=== PATIENT | female | born 1980 | race Two or more races ===

== ENCOUNTER 2021-09-26 05:07 | Inpatient (IN) | payer BC, SELFPAY ==
[2021-09-26] VITALS (21 sets, daily range): BP systolic 50–122; BP diastolic 27–85; PULSE 66–106; RESP 16–18; TEMP 36.6–37.4; O2SAT 98–100; BMI 26.6
[2021-09-26 06:01] LABS: Glucose Point of Care 120 mg/dl (65-105)
[2021-09-26 06:08] LABS: Basophils Absolute Auto 0.1 K/mm3 (0.0-0.1); Basophils Percent Auto 0.6 % (0.2-1.2); Eosinophils Absolute Auto 0.1 K/mm3 (0-0.3); Eosinophils Percent Auto 0.7 % (0-4.4); Hematocrit 38.6 % (37.0-47.0); Immature Granulocyte Absolute 0.44 K/mm3 (0.00-0.031); Immature Granulocyte Percent A 4.1 % (0-0.5); Lymphocytes Absolute Auto 2.37 K/mm3 (0.9-3.2); Lymphocytes Percent Auto 21.8 % (18.3-44.2); Mean Corpuscular HGB Conc 33.7 g/dl (32-36); Mean Corpuscular Hemoglobin 30.5 pg (26-34); Mean Corpuscular Volume 90.6 fl (80-100); Mean Platelet Volume 9.3 fl (7.4-10.4); Monocytes Absolute Auto 0.6 K/mm3 (0.1-0.6); Monocytes Percent Auto 5.6 % (2.6-8.5); Neutrophils Absolute Auto 7.3 K/mm3 (1.3-6.7); Neutrophils Percent Auto 67.2 % (45.5-73.1); Platelet Count Result 303 k/mm3 (150-375); Red Blood Count 4.26 M/mm3 (4.2-5.4); Red Cell Distribution Width 13.7 % (11.5-14.5); White Blood Count 10.9 K/mm3 (4.5-10.0)
[2021-09-26] MEDS: OXYTOCIN 30 UNITS/NS 500 ML 30 UNITS/500 ML BAG IV CONT (06:12)
[2021-09-26] MEDS: LACTATED RINGERS 1,000 ML 125 ML IV CONT (06:13)
--- NOTE | 2021-09-26 06:32 | LDADM ---
This patient, Elyse Pete, was admitted to Labor/Delivery/Recovery 107 on 09/26/21 at 05:07. Plans for labor, pain management and were discussed with patient. Patient/family oriented to hospital policies and general routines including ID bracelet, bed and alarms, visiting hours, pain management, procedures, bathroom and other care routines, personal items, smoking policy, room service/diet and guest tray routines, security routines, and visiting hours. Patient/Family are encouraged to report perceived risks to care and to ask questions if they do not understand what they are told or what they should do. See OBIX for further documentation.
--- NOTE | 2021-09-26 06:42 | WPDANESEPP ---
Anes - Eval Pre Procedure Procedure: Labor epidural Date/Time: 09/26/21 06:42 Surgeon: Natalya Preop Diagnosis: Abd pain with contractions Pre Op Diagnosis: IOL Patient Data Age: 41 Gender: F Height: Weight: Last Vital Signs Pulse 96 09/26/21 06:32 BP 109/72 09/26/21 06:32 Allergies Allergy/AdvReac Type Severity Reaction Status Date / Time No Known Allergies Verified 06/19/21 15:01 Home Medications Medication Instructions Recorded Confirmed Type PNV cmb#95-ferrous fumarate-FA 1 tablet PO DAILY 09/07/21 09/26/21 History [] insulin NPH isoph U-100 human 10 unit SUBCUT HS 09/07/21 09/26/21 History [Humulin N NPH Insulin KwikPen] ergocalciferol (vitamin D2) 1 tablet PO DAILY 09/26/21 09/26/21 History Laboratory Tests 09/26/21 09/26/21 09/26/21 05:55 05:59 05:59 WBC 10.9 K/mm3 H K/mm3 (4.5-10.0) RBC 4.26 M/mm3 M/mm3 (4.2-5.4) Hgb 13.0 g/dL g/dL (12.0-15.0) Hct 38.6 % % (37.0-47.0) MCV 90.6 fl fl (80-100) MCH 30.5 pg pg (26-34) MCHC 33.7 g/dl g/dl (32-36) RDW 13.7 % % (11.5-14.5) Plt Count 303 k/mm3 k/mm3 (150-375) MPV 9.3 fl fl (7.4-10.4) Immature Gran % (Auto) 4.1 % H % (0-0.5) Neut % (Auto) 67.2 % % (45.5-73.1) Lymph % (Auto) 21.8 % % (18.3-44.2) R[place] % (Auto) 5.6 % % (2.6-8.5) Eos % (Auto) 0.7 % % (0-4.4) Baso % (Auto) 0.6 % % (0.2-1.2) Lymph # (Auto) 2.37 K/mm3 K/mm3 (0.9-3.2) Rains # (Auto) 0.6 K/mm3 K/mm3 (0.1-0.6) Eos # (Auto) 0.1 K/mm3 K/mm3 (0-0.3) Baso # (Auto) 0.1 K/mm3 K/mm3 (0.0-0.1) Abs Immat Gran (auto) 0.44 K/mm3 H K/mm3 (0.00-0.031) Absolute Neuts (auto) 7.3 K/mm3 H K/mm3 (1.3-6.7) Absolute Nucleated RBC 0.0 K/mm3 K/mm3 (0.0-0.012) Nucleated RBC % 0.0 % % (0.0-0.2) POC Capillary Glucose 120 mg/dl H mg/dl (65-105) RPR Pending Patient hx anesthesia problems: none Family hx anesthesia problems: none Results Review: All pre-operative results and documents have been reviewed as part of the pre-operative evaluation. [facility] Past Medical History Medical History Gestational diabetes mellitus (GDM) affecting and not yet delivered Family History Family History Father Heart disease Hypertension Father Heart disease Social History Social History Smoking status: Never smoker Second hand tobacco smoke exposure: No Alcohol intake: never Substance use: never Substance use type: does not use Gender identity (if verbalized by the patient): Female Sexual Orientation (if Verbalized by the Patient): Straight or Heterosexual Spiritual care concerns: No Exam Day of Procedure 09/26/21 06:42 Patient weight: overweight Lungs: clear to auscultation Airway: Mallampati scale class II Neurological: alert and oriented
--- NOTE | 2021-09-26 07:05 | WPDOBADMIT ---
Obstetrics - Admit Note Admission Note: record reviewed. No pertinent additions to the history and/or any subsequent changes in the physical findings that are not consistent with the expected course of the were found. Additions to the history and/or subsequent changes in the physical findings follow. Here for MIL for GDMA2. Cervix 3-4/70/-2 posterior. AROM with clear fluid. FHTs reactive.
[2021-09-26 08:00] LABS: Rapid Plasma Reagin Non-Reactive (NonReactive)
[2021-09-26 10:12] LABS: Glucose Point of Care 112 mg/dl (65-105)
--- NOTE | 2021-09-26 11:50 | PM.OBPRVD ---
OB - Delivery Note Procedure Delivery date: 09/26/21 Procedure: Events: Gestational Diabetes (Insulin requiring) Induction method: AROM and Per Pitocin Protocol Delivery monitor: External FHT and External Uterine Route of delivery: Laceration Description: Perineal - 2nd Degree Delivery repair: vicryl (3-0) Specimen: No Quantitative Blood Loss (ml): 250 Anesthesia type: Local Disposition: Floor Grassflat Baby Date of : 09/26/21 Weeks of gestation at delivery: 39 Infant gender: Male Weight (pounds): 7 Weight (ounces): 2 position: Right Occiput Anterior Placenta delivery description: Spontaneous Cord Vessel Description: Nuchal Cord (delivered through) and Delayed Cord Clamping score one minute: 8 score five minutes: 9
--- NOTE | 2021-09-26 11:51 | PM.OBDSVD ---
DS: Admitting Diagnosis Discharge Date 09/27/21 Admitting Diagnosis IUP 39 GDMA2 DS: Discharge Diagnosis Discharge Diagnosis (1) (normal spontaneous vaginal delivery): Code(s): O80 - Encounter for full-term uncomplicated delivery Status: Acute OB - DS: Summary OB Procedures : NST and Ultrasound OB Procedures Intrapartum: Spontaneous Vag Delivery OB Procedures: : None Peripartum Data Infant Delivery Method: Natural Vaginal Laceration Description: Perineal - 2nd Degree complications: none Status at Discharge Functional status at discharge: independent ambulation Overall status at discharge: patient is progressing back to baseline Time Spent with Patient Time attestation: Total time spent providing and/or coordinating discharge services: DS: Data Data Completed and Pending Labs on day of discharge: Labs from last 24 hours 09/26/21 09/26/21 09/26/21 10:09 05:59 05:59 WBC RBC Hgb Hct MCV MCH MCHC RDW Plt Count MPV Immature Gran % (Auto) Neut % (Auto) Lymph % (Auto) [place] % (Auto) Eos % (Auto) Baso % (Auto) Lymph # (Auto) [place] # (Auto) Eos # (Auto) Baso # (Auto) Abs Immat Gran (auto) Absolute Neuts (auto) Absolute Nucleated RBC Nucleated RBC % POC Capillary Glucose 112 H RPR Non-reactive Blood Type B Positive Antibody Screen Negative 09/26/21 09/26/21 05:59 05:55 WBC 10.9 H RBC 4.26 Hgb 13.0 Hct 38.6 MCV 90.6 MCH 30.5 MCHC 33.7 RDW 13.7 Plt Count 303 MPV 9.3 Immature Gran % (Auto) 4.1 H Neut % (Auto) 67.2 Lymph % (Auto) 21.8 [place] % (Auto) 5.6 Eos % (Auto) 0.7 Baso % (Auto) 0.6 Lymph # (Auto) 2.37 [place] # (Auto) 0.6 Eos # (Auto) 0.1 Baso # (Auto) 0.1 Abs Immat Gran (auto) 0.44 H Absolute Neuts (auto) 7.3 H Absolute Nucleated RBC 0.0 Nucleated RBC % 0.0 POC Capillary Glucose 120 H RPR Blood Type Antibody Screen Discharge Plan Discharge Attending physician on discharge: Mae Hoang Discharging Clinician: Mae Hoang Anticipated Discharge Date/Time: 09/27/21 11:52 Patient Disposition: Home, Self-Care Activity: may shower and pelvic rest Diet: regular Patient Instructions: Antibiotic Form Stand Alone Forms: General Discharge Information Follow-up/Referrals: Mae Hoang MD [Physician] - 6 Weeks Discharge Medications: Continued PNV cmb#95-ferrous fumarate-FA [] 28 mg iron- 800 mcg Tablet 1 tablet PO DAILY RF: 0 ergocalciferol (vitamin D2) 1,000 unit Tablet 1 tablet PO DAILY RF: 0 Discontinued Humulin N NPH Insulin KwikPen 100 unit/mL (3 mL) Insulin Pen 10 unit SUBCUT HS RF: 0 Date of admission: 09/26/21 05:07 Primary Care Provider: Willem Estrella Admitting Provider: Mae Hoang Attending physician on admission: Mae Hoang Condition: Stable
[2021-09-26] MEDS: METHYLERGONOVINE MALEATE 0.2 MG/ML VIAL IM (11:59)
[2021-09-26] MEDS: OXYTOCIN 30 UNITS/NS 500 ML 30 UNITS/500 ML BAG 125 UNITS IV CONT (12:10)
[2021-09-26] MEDS: WITCH HAZEL 40 PADS 1 PAD TOPICAL (14:03)
--- NOTE | 2021-09-26 14:30 | PC.NURSE ---
Patient transferred to post room #291 via 1430. Support person present. Oriented to unit, room, information board, rooming in, admission packet and security measures. Patient verbalizes understanding.
[2021-09-27 03:45] VITALS: BP 102/60; PULSE 67; RESP 16; TEMP 36.8; O2SAT 97
[2021-09-27 05:09] LABS: Hematocrit 35.1 % (37.0-47.0); Hemoglobin 11.6 g/dL (12.0-15.0)
--- NOTE | 2021-09-27 07:43 | PM.OBPNVD ---
OB - PN: Subj Subjective Date/time seen: 09/27/21 07:43 Patient comments: no complaints baby status: doing well OB - PN: Obj Data Labs CBC & Chem 7: 09/27/21 03:49 Labs: Laboratory Results - last 24 hr 09/26/21 09/26/21 09/27/21 05:59 10:09 03:49 Hgb 11.6 L Hct 35.1 L POC Capillary Glucose 112 H RPR Non-reactive OB - PN A/P Plan day: 1 Plan: routine care, discharge home, follow up 6 weeks and other (Plans BTL at 6 wk pp) Time Spent With Patient Time: Total time spent is greater than 50% in coordination of care (as documented) at patient's floor/unit and/or counseling patient: Exam : Bimanual exam- vagina & uterus: other (Uterus firm, nt @U)
[2021-09-27] MEDS: MULTIVIT/MIN/PREN/FOL AC/IRON TABLET 1 TAB PO (08:18)
[2021-09-27 08:20] VITALS: BP 105/68; PULSE 69; RESP 16; TEMP 36.7; O2SAT 99
[2021-09-27] MEDS: MEASLES,MUMPS,RUBELLA VACCINE 0.5 ML VIAL (09:26)
--- NOTE | 2021-09-27 11:48 | PC.NURSE ---
[id number] Mother led the conversation with her experience and plan to feed her so far and her ability to independently latch optimally without discomfort. Reminded parents to use good handwashing technique to prevent infection. Mother is feeding appropriately for growth of and understands stimulating to eat if needed. Infant has had appropriate feedings in the last 24 hours meets the outcomes for weight, output and jaundice at this time. Mother states she is confident to continue effectively her infant at home or when to call for assistance and denies any additional assistance or education at this time. Reinforced understanding of milk production, transition of milk, signs of adequate intake, prevention/relief of engorgement, responsive after visualizing feeding cues, the different methods of stimulating infant to breastfeed 2-3 hours after the start of the last feeding, community resources, and when to call a provider using the resource of the mom and baby guide/[facility] website. Mother voiced understanding of the education shared. Reported to the primary RN.
--- NOTE | 2021-09-27 13:27 | PC.NURSE ---
Patient viewed the discharge video Mother & Baby Care, The First Two Weeks . Patient was given the opportunity and encouraged to ask questions. Patient verbalized understanding of information shared and has been given the mother/baby guide for home reference.
[2021-09-27] MEDS: IBUPROFEN 600 MG TABLET PO (14:06)
[2021-09-28 08:25] VITALS: BP 109/66; PULSE 74; RESP 20; TEMP 36.7; O2SAT 100
== END 2021-09-27 15:05 | disposition home or self-care (01) | DRG 807 ==
LOC: ANHLDR 11:53 → ANHOB2 14:41
PROVIDERS: Admitting Provider Obstetrics & Gynecology Gynecology; PCP Family Medicine; Visit Provider Obstetrics & Gynecology Gynecology
DX: O24.424 Gestational diabetes mellitus in childbirth, insulin controlled (principal); Z37.0 Single live birth; Z3A.39 39 weeks gestation of pregnancy; O70.1 Second degree perineal laceration during delivery; O69.81X0 Labor and delivery complicated by cord around neck, without compression, not applicable or unspecified
CPT/HCPCS: 36415; 82948; 85014; 85018; 85025; 86592; 86850; 86900; 86901; 90710; A9270; J2210; J2590; J7120

== ENCOUNTER 2021-12-18 00:57 | Day surgery (SDC) | payer BC, SELFPAY ==
[2021-12-13 11:36] VITALS: BMI 24.5
--- NOTE | 2021-12-13 11:56 | PC.NURSE ---
Report to the Outpatient Waiting Room, entrance under the green pavilion located off [facility], at 0700 on 12-18-21. OR Time: 0900. - You and your visitor will be asked a series of questions to screen for COVID 19 for your protection. - Only one visitor is allowed at this time. - The patient visitor is requested to leave or wait in car when not with patient. - A mask is required within the hospital. Patients may have clear liquids (water, carbonated beverages, clear teas, apple juice) until 3 hours prior to surgery with a maximum of 20 ounces. 0600 - No food from midnight until time of surgery - Infants may have breast milk until 4 hours before surgery, infant formula 6 hours prior to surgery. - Children will be allowed to drink immediately following surgery. If applicable, please bring a bottle or sippy cup to assist with drinking. Juice, water, soda, and popsicles are readily available. For infants on formula, please bring formula the day of surgery. Pacifiers are allowed. Take the following medications with a SIP of water the morning of surgery: None Medications to discontinue per physician: vitamins and supplements Date to take last dose: 12-15-21 Please no make-up, nail cuban, hairspray, perfume, deodorant, or body powder the day of surgery. No jewelry (including any body piercings) or valuables the day of surgery, leave them at home. Please take a shower or bath the night before, or the morning of, surgery with an antibacterial soap. Wear comfortable, loose fitting clothing. Children are encouraged to wear pajamas. - Jewelry must be removed prior to entering the operating room. Rings and piercings that are not removed may be cut off. - The hospital will not accept responsibility for valuables. - Please leave all valuables, including medications, at home the day of surgery. If you are going home after surgery, a licensed retail delivery driver must drive you home. - NO public transportation without another adult. - We recommend that an adult stay with you for 24 hours following discharge. - We also recommend that you do not drive, make important decision, drink alcoholic beverages, or take any drugs that were not prescribed by your health care provider for at least 24 hours after your discharge time. For Pediatric surgeries, we recommend two adults accompany the child home (only one inside the building at this time). Follow any additional instructions given to you from your surgeon. If you or anyone in your household have experienced Covid symptoms in the past week, please notify your surgeon or the nurse liaison at the phone number below for possible testing. Telephone instructions given to Elyse Pete and asked if any additional questions and then verbalized understanding. Patient advised to call surgeon office or pre surgery nurse liaison [phone] if any additional questions.
[2021-12-18] VITALS (11 sets, daily range): BP systolic 119–158; BP diastolic 80–97; PULSE 49–88; RESP 12–16; TEMP 36.6–36.7; O2SAT 96–100
--- NOTE | 2021-12-18 07:28 | WPDHPUPDATE1 ---
History and Physical Update Update Date/Time: 12/18/21 07:28 History and Physical has been reviewed, including an updated exam of the patient. There are NO changes in the patient's condition. Risks, benefits, and alternatives have been discussed and questions answered. Patient agrees to proceed with procedure.
--- NOTE | 2021-12-18 07:29 | PM.HPGS ---
History of Present Illness History of Present Illness Consent: Risks, benefits, and alternatives have been discussed and questions answered. Patient agrees to proceed with procedure. Chief complaint: Sterilization Narrative: Elyse Pete is a 41 year old female requesting permanent sterilization. Plan to proceed with laparoscopic bilateral tubal ligation with Falope rings. Risks of infection, bleeding, injury to internal organs, and tubal failure with increased ectopic risk were reviewed. The permanent and irreversible nature of tubal sterilization was reviewed. Patient voices understanding and agrees to proceed. Review of Systems Review of Systems: not repeated day of surgery; patient states no changes in status [facility] Past Medical History Medical History (Updated 12/18/21 @ 07:31 by Mae Hoang MD) (normal spontaneous vaginal delivery) X3 Family History Family History Father Heart disease Hypertension Father Heart disease Social History Social History Smoking status: Never smoker Second hand tobacco smoke exposure: No Alcohol intake: current Alcohol use details: occasionally Substance use: never Substance use type: does not use Living arrangements: alone Gender identity (if verbalized by the patient): Female Sexual Orientation (if Verbalized by the Patient): Straight or Heterosexual Spiritual care concerns: No Meds Home Medications and Allergies Home Medications Medication Instructions Recorded Confirmed Type vit no.95-ferrous 1 tablet PO DAILY 09/07/21 12/13/21 History fumarate 28 mg-folic acid 800 mcg tablet () ergocalciferol (vitamin D2) 1,000 1 tablet PO DAILY 09/26/21 12/13/21 History unit tablet Allergies Allergy/AdvReac Type Severity Reaction Status Date / Time No Known Allergies Verified 12/13/21 11:32 Exam Const: General: healthy appearing and alert Orientation/consciousness: patient oriented x3 GI: GI Palp: Yes Soft to palpation, No Tenderness to palpation present (GI) and No Palpable mass present : External Female Exam: normal external appearance Speculum Exam - Vagina: normal appearance of the vagina and normal vaginal discharge Speculum Exam - Cervix: normal appearance of the cervix Bimanual exam- vagina & uterus: uterine size normal and consistency normal Bimanual Exam- Adnexa, other: normal adnexae and No adnexal tenderness Neuro: General: patient oriented x3 Assessment and Plan Assessment and plan (1) Encounter for sterilization: Code(s): Z30.2 - Encounter for sterilization Status: Acute Assessment and Plan: Plan to proceed with laparoscopic bilateral tubal ligation with Falope rings
[2021-12-18] MEDS: LACTATED RINGERS 1,000 ML 30 ML IV CONT ×2 (07:48→10:00)
[2021-12-18] MEDS: ACETAMINOPHEN 500 MG TABLET 1000 MG PO (07:48)
[2021-12-18] MEDS: KETOROLAC 15 MG/ML VIAL (*BKC) IV PUSH (07:49)
--- NOTE | 2021-12-18 07:57 | WPDANESEPPF ---
Anes - Initial Pre Proc Eval Procedure: Operation Date: 12/18/21 09:00 Proposed Procedures p Laparoscopic Bilateral Tubal Ligation with Fallopian Rings - Mae Hoang MD Date/Time: 12/18/21 07:57 Surgeon: Mae Hoang MD Pre Op Diagnosis: Sterilization Patient Data Age: 41 Gender: F Height: 1.55 m Weight: 57.45 kg Last Vital Signs Temp 36.6 C 12/18/21 07:33 Pulse 88 12/18/21 07:33 Resp 16 12/18/21 07:33 BP 119/84 12/18/21 07:33 Pulse Ox 99 12/18/21 07:33 O2 Del Method Room Air 12/18/21 07:33 Allergies Allergy/AdvReac Type Severity Reaction Status Date / Time No Known Allergies Verified 12/18/21 07:33 Home Medications Medication Instructions Recorded Confirmed Type vit no.95-ferrous 1 tablet PO DAILY 09/07/21 12/18/21 History fumarate 28 mg-folic acid 800 mcg tablet () ergocalciferol (vitamin D2) 1,000 1 tablet PO DAILY 09/26/21 12/18/21 History unit tablet Patient hx anesthesia problems: none Family hx anesthesia problems: none Results Review: All pre-operative results and documents have been reviewed as part of the pre-operative evaluation. [facility] Past Medical History Medical History (normal spontaneous vaginal delivery) X3 Family History Family History Father Heart disease Hypertension Father Heart disease Social History Social History Smoking status: Never smoker Second hand tobacco smoke exposure: No Alcohol intake: current Alcohol use details: occasionally Substance use: never Substance use type: does not use Living arrangements: alone Gender identity (if verbalized by the patient): Female Sexual Orientation (if Verbalized by the Patient): Straight or Heterosexual Spiritual care concerns: No Anes - Eval Final PreProcedure Day of Procedure 12/18/21 07:57 Patient weight: normal Heart: regular rate and rhythm Lungs: clear to auscultation Airway: Mallampati scale class 1 Neurological: alert and oriented Last oral intake: >/= 8 hours ASA classification: I Emergent: no Anesthetic plan: proceed Anesthesia type and monitoring: general ETT and standard monitoring Results Review: All pre-operative results and documents have been reviewed as part of the pre-operative evaluation. Informed Consent: The patient's anesthetic plan and its attendant risks and benefits were discussed with the patient/family/POA. Questions were solicited and answers provided to the satisfaction of the patient/family/POA.
--- NOTE | 2021-12-18 09:24 | P.OP_ITS ---
Procedure Note - Detailed Date of Procedure 12/18/21 Pre-op Diagnosis Sterilization Post-op Diagnosis Same Procedure Performed Laparoscopic bilateral tubal ligation with Falope ring Surgeon Mae Hoang MD Anesthesia General Findings Uterus sounds to 8cm. Normal-appearing tubes, ovaries, and uterus. Description of Procedure The patient was taken to the operating room and placed under anesthesia in the dorsal lithotomy position. She was prepped and draped in usual sterile fashion. Penelope speculum was placed in the vagina and the cervix is grasped on the anterior lip with a tenaculum. The uterus is sounded to 8cm. The SUE manipulator was placed and other instruments are removed. Bladder was drained of 300cc of clear yellow urine. Attention is then turned to the abdomen where a horizontal skin incision was made at the base of the umbilicus. The abdomen is tented and the Veress needle placed. Opening patient pressure is 6mmHg. Pneumoperitoneum was obtained to a patient pressure of 15 mmHg. The Veress needle was removed and the 5mm Optiview trocar placed. Intra-abdominal placement was confirmed with the laparoscope. The patient is placed in Trendelenburg. The 8mm skin incision was made 2cm above the symphysis pubis in the midline. The 8mm trocar is placed under direct visualization. The blunt probe is used to bring the tubes into the surgical field. The ring applicator is used to grasp the left tube. A good loop of tube was brought into the applicator and a ring was applied. Upon switching to the 2nd setting on the ring applicator the ring ejected. This was grasped with a grasper and removed. A new set of rings was placed and the right tube was grasped with the ring applicator and the ring was applied. Picture documentation was taken. All instruments are removed and the pneumoperitoneum is reduced. Skin incisions were closed using 4-0 nylon in an interrupted fashion. Vaginal instruments are removed. Patient is awakened from anesthesia and taken to recovery in stable condition. Sponge, needle, and instrument counts are correct per the OR staff. Estimated Blood Loss 5 Drains No Packing No Pathology None sent Complications No immediate complications Condition Stable Disposition PACU
[2021-12-18] MEDS: fentaNYL CITRATE INJ (*CRX) 100 MCG/2 ML VIAL 25 MCG IV PUSH ×7 (09:52→11:53)
[2021-12-18] MEDS: oxyCODONE HCL (*CRX) 5 MG TAB IR PO (11:08)
== END 2021-12-18 12:30 | disposition home or self-care (01) ==
PROVIDERS: PCP Family Medicine; Visit Provider Obstetrics & Gynecology Gynecology
PROC: (CPT 58671; principal; 2021-12-18 09:00)
DX: Z30.2 Encounter for sterilization (principal)
CPT/HCPCS: 58671; A4264; A9270; J0330; J1100; J1170; J1885; J2250; J2405; J2704; J3010; J7120

== ENCOUNTER 2024-06-08 10:18 | Emergency (ER) | payer BC, SELFPAY ==
--- NOTE | ~2024-06-08 | XR_ITS ---
EXAMINATION: XR chest 2V DATE: 06/08/2024 12:44 INDICATION: Shortness of breath. TECHNIQUE: Frontal and lateral views of the chest were obtained. COMPARISON: None. FINDINGS: There is no pneumonia, pleural effusion, or pneumothorax. The heart size is normal. IMPRESSION: 1. No acute cardiopulmonary disease. Reviewed, dictated and finalized at location A. [employer]
[2024-06-08 10:24] VITALS: BP 150/90; PULSE 104; RESP 18; TEMP 36.6; O2SAT 96
[2024-06-08 12:17] VITALS: BP 132/109; PULSE 100; RESP 18; TEMP 36.8; O2SAT 98
[2024-06-08 12:20] VITALS: O2SAT 98
[2024-06-08 13:08] VITALS: PULSE 101; RESP 20; O2SAT 98
[2024-06-08] MEDS: IPRATROPIUM 0.5 MG/ALBUTEROL SULFATE 2.5 MG AMPUL.NEB 3 ML INHALATION (13:08)
[2024-06-08 13:14] VITALS: PULSE 100; RESP 20
[2024-06-08 13:38] LABS: Influenza A QL RT-PCR Negative (Negative); Influenza B QL RT-PCR Negative (Negative); RSV RNA, RT-PCR Negative (Negative); SARS-CoV-2 RNA PCR Negative (Negative)
--- NOTE | 2024-06-08 14:09 | ED.GENADULT ---
HPI - General Adult General Chief complaint: Upper Respiratory Infection Stated complaint: Trouble breathing, cough Time Seen by Provider: 06/08/24 12:27 History of Present Illness HPI narrative: Patient is a 43-year-old female who presents ER with shortness of breath. Ongoing over last few days. No fevers or chills or sweats. Associated with cough and sore throat. She can hear herself wheezing. Reports asthma as a child. No chest pain. Dyspnea is worse with exertion. She does have a 2-year-old that also has viral illness. Related Data Home Medications ?Medication ?Instructions ?Recorded ?Confirmed ?Last Taken ?Type vit no.95-ferrous 1 tablet PO DAILY 09/07/21 09/20/22 09/25/21 20:00 History fumarate 28 mg-folic acid 800 mcg tablet () ergocalciferol (vitamin D2) 1,000 1 tablet PO DAILY 09/26/21 09/20/22 09/25/21 14:00 History unit tablet Allergies Allergy/AdvReac Type Severity Reaction Status Date / Time No Known Allergies Allergy Verified 06/08/24 12:21 Review of Systems Review of Systems: All systems reviewed & are unremarkable except as noted in HPI and below Constitutional: Constitutional: Reports no additional constitutional complaints Cardiovascular: Cardiovascular: Reports no additional cardiovascular complaints Respiratory: Respiratory: Reports no additional respiratory complaints Gastrointestinal: Gastrointestinal: Reports no additional gastrointestinal complaints PMFSH Past Medical History Medical History (normal spontaneous vaginal delivery) X3 Family History Family History Father Heart disease Hypertension Father Heart disease Social History Social History Smoking status: Never smoker Second hand tobacco smoke exposure: No Alcohol intake: current Alcohol use details: occasionally Substance use: never Substance use type: does not use Living arrangements: alone Occupation/Education: occupation Gender identity (if verbalized by the patient): Female Sexual Orientation (if Verbalized by the Patient): Straight or Heterosexual Spiritual care concerns: No Exam Narrative: GENERAL: Well-appearing, well-nourished, and in no acute distress. HEAD: Normocephalic, atraumatic. ENT: Mucous membranes moist. CHEST: Diffuse expiratory wheezing in all lung ayers. No respiratory distress. HEART: Regular rate and rhythm. Normal peripheral pulses. EXTREMITIES: Normal range of motion. No edema. SKIN: Warm, dry, no rash. NEURO: Alert and oriented x3. PSYCH: Normal mood and affect. Course Course Emergency Course: Lungs clear auscultation after 1 DuoNeb. Discharge with albuterol as well as prednisone. Viral panel and chest x-ray negative. Vital Signs Vital signs: Vital Signs Temperature 97.8 F 06/08/24 10:24 Pulse Rate 104 H 06/08/24 10:24 Respiratory Rate 18 06/08/24 10:24 Blood Pressure 150/90 H 06/08/24 10:24 Pulse Oximetry 96 06/08/24 10:24 Temperature 98.3 F 06/08/24 12:17 Pulse Rate 100 06/08/24 13:14 Respiratory Rate 20 06/08/24 13:14 Blood Pressure 132/109 H 06/08/24 12:17 Pulse Oximetry 98 06/08/24 13:08 Oxygen Delivery Room Air 06/08/24 13:08 Fraction of Inspired Oxygen 21 06/08/24 13:08 Medical Decision Making Vital Signs Vital Signs: Vital Signs Temperature 97.8 F 06/08/24 10:24 Pulse Rate 104 H 06/08/24 10:24 Respiratory Rate 18 06/08/24 10:24 Blood Pressure 150/90 H 06/08/24 10:24 Pulse Oximetry 96 06/08/24 10:24 Temperature 98.3 F 06/08/24 12:17 Pulse Rate 100 06/08/24 13:14 Respiratory Rate 20 06/08/24 13:14 Blood Pressure 132/109 H 06/08/24 12:17 Pulse Oximetry 98 06/08/24 13:08 Oxygen Delivery Room Air 06/08/24 13:08 Fraction of Inspired Oxygen 21 06/08/24 13:08 Lab Data Labs: Lab Results 06/08/24 Range/Units 12:44 Influenza A (RT-PCR) Negative (Negative) Influenza B (RT-PCR) Negative (Negative) RSV (RT-PCR) Negative (Negative) SARS-CoV-2 RNA (RT-PCR) Negative (Negative) Imaging Data Radiologist's impression: ITS Impressions Chest X-Ray 06/08/24 12:47 IMPRESSION: 1. No acute cardiopulmonary disease. Discharge Plan Discharge Clinical Impression: Bronchitis Patient Disposition: Home, Self-Care Condition: Stable Instructions: Acute Bronchitis (ED) Additional Instructions: Please return to the emergency department if you develop severe and persistent chest pain, difficulty breathing, dizziness, leg swelling or if you are coughing up blood as these can be signs of a medical emergency. Please call your doctor for a follow up appointment to determine the need for further testing. Patient Language: Italian Prescriptions: New prednisone 50 mg tablet 50 mg PO DAILY Qty: 7 0RF albuterol sulfate 90 mcg/actuation HFA aerosol inhaler 4 puff inhalation QID PRN (Reason: shortness of breath or wheezing) Qty: 8.5 0RF No Action prednisone 10 mg tablet 20 mg PO DAILY Qty: 10 0RF Rx Instructions: Take 2 tabs (20 mg) daily for 5 days PNV cmb#95-ferrous fumarate-FA [] 28 mg iron- 800 mcg Tablet 1 tablet PO DAILY ergocalciferol (vitamin D2) 1,000 unit Tablet 1 tablet PO DAILY Follow-up/Referrals: Willem Estrella MD [Primary Care Provider] - 1 Week
== END 2024-06-08 14:26 | disposition home or self-care (01) ==
PROVIDERS: Emergency Provider Emergency Medicine; PCP Family Medicine
DX: J40 Bronchitis, not specified as acute or chronic (principal); Z20.822 Contact with and (suspected) exposure to COVID-19
CPT/HCPCS: 71046; 87637; 94640; 99283

== ENCOUNTER 2024-10-29 09:33 | Outpatient (CLI) | payer BC, SELFPAY ==
--- NOTE | ~2024-10-29 | MM_ITS ---
EXAMINATION: MM screening gene BI w radha HISTORY: Screening TECHNIQUE: Craniocaudal and mediolateral oblique 3-D tomosynthesis images were obtained and synthetic 2-D images were generated. CAD analysis was submitted and interpreted. COMPARISON: No prior mammogram is available for comparison at this institution. BREAST PARENCHYMAL COMPOSITION: The breasts are extremely dense, which lowers the sensitivity of mamm ography. FINDINGS: There is no evidence of suspicious mass, calcification, or architectural distortion to sugg est malignancy in either breast. There has been no suspicious interval change. IMPRESSION: 1. No mammographic evidence of malignancy. 2. Recommend routine screening mammography in one year. BI-RADS Category 1: Negative Reviewed, dictated and finalized at location B.
--- OUTSIDE RECORDS SUMMARY | 2024-10-29 09:38 | XMS_ITS | Clinical Summary ---
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 Name Role Phone Unavailable Primary Care Provider Unavailabl e Social History Tobacco Use Types Packs/Day Years Used Date Smoking Tobacco: Never Assessed Comments Unknown Sex and Gender Information Value Date Recorded Sex Assigned at Not on file Legal Sex Female 3:12 PM [employer]POSAL WORK[employer] Gender Identity Not on file Sexual Orientation Not on file Plan of Treatment Health Maintenance Due Date Last Done Comments DTAP/TDAP/TD VACCINES (1 - Tdap) 2000 HEPATITIS B VACCINES (1 of 3 - 19+ 3-dose series) 2000 HPV/Cotest (21-29) 2002 CERVICAL CANCER SCREENING 08/24/2011 HPV/Cotest (30-65) 08/24/2011 PAP SMEAR 08/24/2011 BREAST CANCER SCREENING 2021 INFLUENZA VACCINE (#1) 2024 HPV VACCINES Aged Out No longer eligi ble based on patient's age to complete this topic Insurance [employer] [facility]
== END 2024-10-29 09:34 | disposition home or self-care (01) ==
LOC: ANHIMG 09:35
PROVIDERS: PCP Family Medicine; Visit Provider Obstetrics & Gynecology Gynecology
DX: Z12.31 Encounter for screening mammogram for malignant neoplasm of breast (principal)
CPT/HCPCS: 77063; 77067